=== PATIENT | male | born 1960 | race Caucasian/White ===

== ENCOUNTER 2016-11-13 21:35 | Emergency (ER) | payer MEDICAID ==
[~2016-11-13] VITALS: Ht 177.8 cm; Wt 79.4 kg
--- NOTE | 2016-11-13 22:00 | NUR ---
SEEN BY FOR EVAL. VSS. SAFETY AND COMFORT MEASURES PROVIDED. WILL MONITOR.
--- NOTE | 2016-11-13 23:31 | NUR ---
Patient is resting comfortably in bed with eyes closed. Easily aroused. VSS
--- NOTE | 2016-11-14 01:30 | NUR ---
PT SLEEPING LEFT LATERAL ON BED. AWAKENS TO NAME THEN RETURNS TO SLEEP. VSS, NAD NOTED. WILL CONT TO MONITOR.
--- NOTE | 2016-11-14 03:14 | NUR ---
PT SLEEPING SUPINE ON BED. AWAKENS TO NAME. GIVEN BLANKET THEN RETURNS TO SLEEP. VSS, NAD NOTED. WILL CONT TO MONITOR.
--- NOTE | 2016-11-14 05:03 | NUR ---
PT SLEEPING SEMIFOLWERS ON BED. AWAKENS TO NAME. DENIES COMPLAINT THEN RETURNS TO SLEEP. VSS, NAD NOTED. WILL CONT TO MONITOR.
[2016-11-14 06:07] VITALS: BP 110/66
--- NOTE | 2016-11-14 06:08 | NUR ---
Patient given written and verbal discharge instructions. Patient verbalizes understanding of instructions. Patient is ambulatory with steady gait. Refuses offer of [facility]dc placement. Patient given list of available shelters in surrounding area. VSS, NAD noted on DC. Denies complaint on DC.
== END 2016-11-14 06:09 | disposition home or self-care (01) ==
LOC: ER 21:38
DX: F10.129 Alcohol abuse with intoxication, unspecified (principal)
CPT/HCPCS: 82962; 99283; A4606; Z7610

== ENCOUNTER 2018-01-24 10:02 | Emergency (ER) | payer MEDICAID ==
[~2018-01-24] VITALS: Ht 177.8 cm; Wt 80.7 kg
--- NOTE | 2018-01-24 10:05 | NUR ---
BIB [facility] [address] AND [employer] OFFICERS 57 YEAR OLD MALE ,"ETOH, WALKING INTO ONCOMING TRAFFIC". ALERT AND ORIENTED X2 BREATHING EVEN AND UNLABORED WITH NO SOB NOTED. +SI/-HI. PLAN "I WANT TO WALK IN FRONT TRAFFIC". SKIN WARM TO [facility]. AWAITNG TO BE SEEN BY .
[2018-01-24 10:38] LABS: APPEARANCE,URINE Clear (CLEAR); BILIRUBIN,URINE Negative (NEGATIVE); BLOOD, URINE Negative Ery/uL (NEGATIVE); COLOR,URINE Yellow (YELLOW); KETONES,URINE Negative (NEGATIVE); LEUKOCYTE ESTERASE ,URINE Negative (NEGATIVE); NITRITE, URINE Negative (NEGATIVE); PH,URINE 5.5 (5.0-8.0); PROTEIN,URINE Negative (NEGATIVE); UGLUCOSE 100 MG/DL mg/dL (NEGATIVE); UROBILINOGEN,URINE 0.2 EU/dL (0.2)
[2018-01-24 10:42] LABS: CALCIUM, SERUM 8.4 mg/dL (8.5-10.1); CREATININE 0.7 mg/dL (0.6-1.3)
[2018-01-24 10:47] LABS: BASOPHILS % (AUTO) 1.5 % (0.0-2.0); EOSINOPHILS % (AUTO) 8.2 % (0.0-6.0); HEMATOCRIT 46 % (39-51); HEMOGLOBIN 16.5 g/dL (13.5-17.5); LYMPHOCYTES # (AUTO) 1.1 /CMM (0.8-4.8); LYMPHOCYTES % (AUTO) 25.6 % (20.0-44.0); MEAN CORPUSCULAR HGB CONC 36 g/dl (31.0-36.0); MEAN CORPUSCULAR VOLUME 97 fL (80-96); MONOCYTES % (AUTO) 14.8 % (2.0-12.0); NEUTROPHILS # (AUTO) 2.2 /CMM (1.8-8.9); NEUTROPHILS % (AUTO) 49.9 % (43.0-81.0); PLATELET COUNT (AUTO) 147 /CMM (150-450); RED BLOOD CELL COUNT(AUTO) 4.73 MIL/uL (4.5-6.0); WHITE BLOOD COUNT (AUTO) 4.4 K/uL (4.3-11.0)
[2018-01-24 10:48] LABS: ALBUMIN 3.5 g/dL (3.4-5.0); BASOPHILS # (AUTO) 0.1 /CMM (0.0-0.2); BILIRUBIN,DIRECT 0.1 mg/dL (0.0-0.2); BILIRUBIN,TOTAL 0.3 mg/dL (0.2-1.0); MONOCYTES # (AUTO) 0.6 /CMM (0.1-1.30); SALICYLATE 4.6 mg/dL (2.8-20.0); TOTAL PROTEIN, SERUM 8.1 g/dL (6.4-8.2)
--- NOTE | 2018-01-24 11:55 | NUR ---
PATIENT REMAINS STABLE ASLEEP EASILY AROUSE. PROVIDED LUNCH FOR PATIENT.
--- NOTE | 2018-01-24 14:50 | NUR ---
PATIENT REMAINS STABLE, VSS ARE STABLE, NO DISTRESS NOTED. PATIENT IS ASLEEP BUT EASILY AROUSED.
--- NOTE | 2018-01-24 16:55 | NUR ---
PATIENT REMAINS STABLE, VSS ARE STABLE, NO DISTRESS NOTED.
[2018-01-24] MEDS ORDERED: CHLORDIAZEPOXIDE HCL 25 MG CAPSULE PO ONE (20:30)
[2018-01-24] MEDS ORDERED: CHLORDIAZEPOXIDE HCL 25 MG CAPSULE ONE (20:55)
[2018-01-24 21:10] VITALS: BP 128/91
== END 2018-01-24 21:10 | disposition home or self-care (01) ==
LOC: ER 10:04
DX: F10.229 Alcohol dependence with intoxication, unspecified (principal); R45.851 Suicidal ideations; Y90.8 Blood alcohol level of 240 mg/100 ml or more; Z60.2 Problems related to living alone
CPT/HCPCS: 36415; 71045; 80048; 80076; 80305; 80329; 81001; 85025; 99285; A4606; G0480 ×3; Z7610; 81000-TC

== ENCOUNTER 2018-05-18 00:09 | Emergency (ER) | payer MEDICAID, OTHER ==
[~2018-05-18] VITALS: Ht 182.9 cm; Wt 90.7 kg
--- NOTE | 2018-05-18 00:15 | NUR ---
PT TEDDY. C/O "ALCOHOL INTOXICATION" -SOB -N/V -ACUTE DISTRESS. PT AOX2 -SI -HI
--- NOTE | 2018-05-18 01:44 | NUR ---
Patient is resting comfortably in bed with eyes closed. Easily aroused. VSS. PT GIVEN FOOD/JUICE. USED RESTROOM
[2018-05-18 04:22] LABS: APPEARANCE,URINE CLEAR (CLEAR); BILIRUBIN,URINE NEGATIVE (NEGATIVE); BLOOD, URINE TRACE-INTA Ery/uL (NEGATIVE); COLOR,URINE YELLOW (YELLOW); KETONES,URINE NEGATIVE (NEGATIVE); LEUKOCYTE ESTERASE ,URINE NEGATIVE (NEGATIVE); NITRITE, URINE NEGATIVE (NEGATIVE); PH,URINE 5.5 (5.0-8.0); PROTEIN,URINE NEGATIVE (NEGATIVE); UGLUCOSE 3+ mg/dL (NEGATIVE); UROBILINOGEN,URINE 0.2 EU/dL (0.2)
[2018-05-18 04:34] LABS: BACTERIA,URINE None seen /HPF (None Seen); RBC,URINE 0-2 /HPF (0-2); SQUAMOUS EPITHELIAL CELL,UR Few /HPF (None Seen); WBC,URINE 0-2 /HPF (0-3)
--- NOTE | 2018-05-18 04:47 | NUR ---
PT RESTING IN BED. VSS
[2018-05-18 05:05] LABS: BASOPHILS # (AUTO) 0.1 /CMM (0.0-0.2); BASOPHILS % (AUTO) 1.4 % (0.0-2.0); EOSINOPHILS % (AUTO) 2.5 % (0.0-6.0); HEMATOCRIT 43 % (39-51); HEMOGLOBIN 14.9 g/dL (13.5-17.5); LYMPHOCYTES # (AUTO) 1.7 /CMM (0.8-4.8); LYMPHOCYTES % (AUTO) 27.9 % (20.0-44.0); MEAN CORPUSCULAR HGB CONC 35 g/dl (31.0-36.0); MEAN CORPUSCULAR VOLUME 98 fL (80-96); MONOCYTES # (AUTO) 0.6 /CMM (0.1-1.30); MONOCYTES % (AUTO) 9.2 % (2.0-12.0); NEUTROPHILS # (AUTO) 3.7 /CMM (1.8-8.9); PLATELET COUNT (AUTO) 144 /CMM (150-450); RED BLOOD CELL COUNT(AUTO) 4.37 MIL/uL (4.5-6.0); WHITE BLOOD COUNT (AUTO) 6.2 K/uL (4.3-11.0)
[2018-05-18 05:14] LABS: CALCIUM, SERUM 8.3 mg/dL (8.5-10.1); CREATININE 0.7 mg/dL (0.6-1.3); POTASSIUM 3.7 mmol/L (3.5-5.1)
[2018-05-18 05:22] LABS: ALBUMIN 3.3 g/dL (3.4-5.0); BILIRUBIN,DIRECT 0.1 mg/dL (0.0-0.2); BILIRUBIN,TOTAL 0.3 mg/dL (0.2-1.0); TOTAL PROTEIN, SERUM 7.6 g/dL (6.4-8.2)
--- NOTE | 2018-05-18 05:59 | NUR ---
Patient is resting comfortably in bed with eyes closed. Easily aroused. VSS
--- NOTE | 2018-05-18 07:34 | NUR ---
RECEIVED REPORT FROM [facility] FOR [facility]ID. PT IS AWAKE ON BED, AAOX4, NOT IN RESPIRATORY DISTRESS, PT IS CLEARED FOR DISCHARGE, FOOD TRAY GIVEN.
--- NOTE | 2018-05-18 07:54 | NUR ---
Patient given written and verbal discharge instructions. Patient verbalizes understanding of instructions. Patient is ambulatory with steady gait. Refuses offer of halfway placement. Patient given list of available shelters in surrounding area.
[2018-05-18 07:56] VITALS: BP 128/82
== END 2018-05-18 07:56 | disposition home or self-care (01) ==
LOC: ER 00:11
DX: R45.851 Suicidal ideations (principal); F19.10 Other psychoactive substance abuse, uncomplicated; J44.9 Chronic obstructive pulmonary disease, unspecified; E11.9 Type 2 diabetes mellitus without complications; F10.10 Alcohol abuse, uncomplicated; Y90.6 Blood alcohol level of 120-199 mg/100 ml; Z59.0 Homelessness
CPT/HCPCS: 36415; 80048-TC; 80076-TC; 80305; 81000-TC; 82962-TC; 85025-TC; G0480